=== PATIENT | female | born 1940 | race African-American/Black ===

== ENCOUNTER 2016-09-09 16:51 | Emergency (ER) | payer OTHER ==
[2016-09-09 16:55] VITALS: BP 187/90; PULSE 59; TEMP 98; BMI 27.2
== END 2016-09-09 17:26 | disposition left against medical advice (07) ==
LOC: JER 16:51
DX: Z53.21 Procedure and treatment not carried out due to patient leaving prior to being seen by health care provider (principal)
CPT/HCPCS: 99281-25